=== PATIENT | female | born 1965 | race Caucasian/White ===

== ENCOUNTER 2021-12-30 13:36 | Outpatient (CLI) | payer MEDICAID ==
--- NOTE | 2021-12-30 17:00 | XRAY Report ---
PROCEDURE: Chest 2 View X-Ray INDICATIONS: BRONCHITIS TECHNIQUE: 2 view(s) of the chest. COMPARISON: None. FINDINGS: Surgical changes and devices: None. Lungs and pleura: No pleural effusions or pneumothorax. Lungs are clear. Mediastinum: Mediastinal contours are normal. Heart size is normal. Bones and chest wall: No suspicious bony abnormalities. Soft tissues appear unremarkable. IMPRESSION: No acute cardiopulmonary disease process. Reviewed by: Linda Dawson MD, PhD on 12/30/2021 4:59 PM PDT Approved by: Linda Dawson MD, PhD on 12/30/2021 4:59 PM PDT Station ID: [id number]
== END 2021-12-30 23:59 | disposition home or self-care (01) ==
LOC: DI.N 13:36
PROVIDERS: ATTEND Family Medicine
DX: J20.9 Acute bronchitis, unspecified (principal)

== ENCOUNTER 2022-01-05 22:07 | Emergency (ER) | payer MEDICAID ==
--- OUTSIDE RECORDS SUMMARY | 2022-01-05 22:38 | EXTERNAL MEDICAL SUMMARY RPT | Continuity of Care Document ---
:1965 Author Organization [facility] Address [address] [place] [address] Phone Care Team Providers Name Role Phone Melecio KNOX Unavailable Unavailable Allergies No information. Encounters No information. Medications date description facility 20211230 prednisone All Problems date description facility 20220103 migraine with vomiting [facility] [employer] 20211230 CHEST 2 VIEW All 20211230 Acute bronchitis, unspecified All 20211230 Acute bronchitis All Results No information. Vital Signs date measurement value source 20211230 weight_standard 155 lb 20211230 weight_metric 70.31 kg 20211230 temperature_standard 98.3 F 20211230 temperature_metric 36.83 C 20211230 respiration_rate 16 /min 20211230 height_standard 65 in 20211230 height_metric 165.1 cm 20211230 heart_rate 82 /min 20211230 BP_systolic 167 mm[Hg] 20211230 BP_diastolic 93 mm[Hg] 20211230 BMI 25.89 kg/m2
[2022-01-05] MEDS ORDERED: SODIUM CHLORIDE 0.9% 1,000 ML IV STA (23:49)
[2022-01-05] MEDS ORDERED: METOCLOPRAMIDE 10 MG/2 ML VIAL IVP STA (23:49)
[2022-01-05] MEDS ORDERED: KETOROLAC 30 MG/ML VIAL IVP STA (23:49)
[2022-01-05] MEDS ORDERED: diphenhydrAMINE INJ 50 MG/ML VIAL IVP STA (23:49)
[2022-01-06 00:19] LABS: BASOPHILS % (AUTO) 0.3 %; EOSINOPHILS # (AUTO) 0.5 10^3/uL (0.0-0.7); EOSINOPHILS % (AUTO) 4.2 %; HGB - HEMOGLOBIN 14.8 g/dL (12.0-16.0); LYMPHOCYTES # (AUTO) 1.5 10^3/uL (1.5-3.5); LYMPHOCYTES % (AUTO) 13.6 %; MEAN CORPUSCULAR HEMOGLOBIN 28.8 pg (27.0-31.0); MEAN CORPUSCULAR HGB CONC 33.6 g/dL (32.0-36.0); MEAN CORPUSCULAR VOLUME 85.8 fL (81.0-99.0); MONOCYTES # (AUTO) 1.1 10^3/uL (0.0-1.0); MONOCYTES % (AUTO) 9.4 %; NEUTROPHILS # (AUTO) 7.9 10^3/uL (1.5-6.6); NEUTROPHILS % (AUTO) 71.3 %; PLT - PLATELET COUNT 281 10^3/uL (130-450); RED BLOOD COUNT 5.13 10^6/uL (4.20-5.40); RED CELL DISTRIBUTION WIDTH 11.6 % (12.0-15.0); WHITE BLOOD COUNT 11.1 x10^3/uL (4.8-10.8)
[2022-01-06 00:30] LABS: ALBUMIN 3.6 g/dL (3.2-5.5); ALBUMIN/GLOBULIN RATIO 0.9 (1.0-2.2); BILIRUBIN,TOTAL 0.8 mg/dL (0.2-1.0); CALCIUM 8.8 mg/dL (8.5-10.3); CREATININE 0.9 mg/dL (0.4-1.0); POTASSIUM 3.4 mmol/L (3.5-5.0); TOTAL PROTEIN 7.8 g/dL (6.7-8.2)
[2022-01-06] MEDS ORDERED: IOVERSOL 320 100 ML VIAL IVP ONE ×2 (00:37→00:58)
[2022-01-06 01:18] VITALS: BP 100/54
--- NOTE | 2022-01-06 01:51 | CT Report ---
PROCEDURE: Abdomen/Pelvis W INDICATIONS: generalized abd pain CONTRAST: IV CONTRAST: Optiray 320 ml: 100 PO CONTRAST: *NO PO CONTRAST TECHNIQUE: After the administration of intravenous contrast, 5 mm thick sections acquired from the diaphragms to the symphysis. 5 mm thick coronal and sagittal reformats were acquired. For radiation dose reducti on, the following was used: automated exposure control, adjustment of mA and/or kV according to delonte ent size. COMPARISON: None. FINDINGS: Image quality: Excellent. ABDOMEN: Lung bases: Lung bases are clear. Heart size is normal. Small hiatal hernia. Solid organs: Liver is prominent in size. No focal lesion. Gallbladder is unremarkable. Biliary sy stem is non dilated. Pancreas enhances normally. No splenomegaly. No adrenal nodules. Kidneys demon strate normal size and enhancement, without hydronephrosis. Peritoneum and bowel: Thickening at the colonic hepatic flexure, (03/01). Diverticulosis. Normal appen sly. No small bowel obstruction. Prominence of the mesenteric vasculature in the left abdomen. No irwin e fluid or air. Nodes and vessels: No retroperitoneal or mesenteric adenopathy by size criteria. Aorta and inferior vena cava are normal in size. Miscellaneous: No ventral hernias. PELVIS: Genitourinary: Bladder wall thickness is normal. Anteverted uterus. Miscellaneous: No inguinal hernias or adenopathy. Bones: No suspicious bony lesions. No vertebral body compression fractures. IMPRESSION: 1. Thickening at the colonic hepatic flexure. This could represent colon cancer. Colitis or focal dec ompression could have a similar appearance. Recommend colonoscopy for further evaluation if not recen tly performed. 2. Prominence of the mesenteric vasculature in the left abdomen. This is a nonspecific finding but co uld be seen in an enteritis. 3. No small bowel obstruction. No free fluid. Diverticulosis. 4. Small hiatal hernia. Reviewed by: Cal Lara MD on 01/06/2022 1:50 AM PDT Approved by: Cal Lara MD on 01/06/2022 1:50 AM PDT Station ID: [id number]
--- NOTE | 2022-01-06 02:09 | ED Physician Documentation ---
PD HPI ABD PAIN - Stated complaint Stated Complaint: HBP/HEADACHE/ABD PX/NAUSEA - Chief complaint Chief Complaint: Neuro - History obtained from History obtained from: Patient - Additional information Additional information: Patient is a 56-year-old female with a history significant for previous stroke with no residual deficits, hypothyroidism presenting for evaluation of headache and abdominal pain.Patient had similar symptoms on Tuesday and was seen at another hospital called [facility]. She had a CT of her head that was reportedly normal and had low potassium which was repleted. Patient has discharge papers with her. She was given prescriptions for Pepcid and Zofran.Patient reports that around 7 PM her headache suddenly returned to the right side of her head which is where he was previously located and feels Similar to the previous headache she had on Tuesday. She also describes having generalized abdominal pain with nausea and vomiting.She attempted Zofran which she has from previous ED visit which did not help. She denies recent fever, trauma, chest pain, difficulty breathing, congestion, dysuria,Focal weakness. Review of Systems Constitutional: denies: Fever Eyes: reports: Photophobia Nose: denies: Congestion Cardiac: denies: Chest pain / pressure, Palpitations Respiratory: denies: Dyspnea, Cough GI: reports: Abdominal Pain, Nausea, Vomiting : denies: Dysuria, Hematuria Skin: denies: Rash Musculoskeletal: denies: Neck pain, Back pain Neurologic: reports: Headache. denies: Focal weakness, Syncope, Head injury PD PAST MEDICAL HISTORY - Past Medical History Past Medical History: Yes Cardiovascular: None Respiratory: None Neuro: CVA Endocrine/Autoimmune: HyPOthyroidism GI: None FIELD MARKETING DIRECTOR: None : None HEENT: None Psych: None Musculoskeletal: None Derm: None Other Past Medical History: STROKE X 2019... - Past Surgical History Past Surgical History: No - Present Medications Home Medications: Ambulatory Orders Medication Instructions Recorded Confirmed Levothyroxine Sodium 0.112 mcg PO DAILY 01/05/22 01/05/22 [Levothyroxine] - Allergies Allergies/Adverse Reactions: Allergies Allergy/AdvReac Type Severity Reaction Status Date / Time No Known Drug Allergies Allergy Verified 01/05/22 22:15 - Social History Does the pt smoke?: Yes Smoking Status: Current every day smoker Does the pt drink ETOH?: No Does the pt have substance abuse?: No - Immunizations Immunizations are current?: Yes - POLST Patient has POLST: No PD ED PE NORMAL - General General: Alert and oriented X 3, No acute distress, Well developed/nourished - HEENT HEENT: Atraumatic, PERRL, EOMI, Moist mucous membranes, Pharynx benign - Neck Neck: Supple, no meningeal sign - Cardiac Cardiac: RRR, No murmur, Strong equal pulses - Respiratory Respiratory: No respiratory distress, Clear bilaterally - Abdomen Abdomen: Normal bowel sounds, Soft, Non tender (Mild generalized tenderness), Non distended - Back Back: No CVA TTP - Derm Derm: Normal color, Warm and dry - Extremities Extremities: No deformity, No edema - Neuro Neuro: Alert and oriented X 3, 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, No motor deficit, No sensory deficit, Normal speech, Other (Normal gait) - Psych Psych: Normal mood, Normal affect Results - Vitals Vitals: Vital Signs - 24 hr 01/05/22 01/05/22 01/05/22 22:09 22:50 22:56 Temperature 36.8 C Heart Rate 93 67 Respiratory 17 17 17 Rate Blood Pressure 148/92 H O2 Saturation 95 97 01/06/22 01/06/22 01/06/22 00:22 01:17 01:42 Temperature Heart Rate 75 70 Respiratory 16 15 16 Rate Blood Pressure 100/54 L O2 Saturation 96 97 01/06/22 01/06/22 01:52 02:07 Temperature 36.6 C Heart Rate Respiratory 16 Rate Blood Pressure O2 Saturation Oxygen O2 Source Room air - Labs Labs: Laboratory Tests 01/05/22 01/05/22 00:12 00:12 WBC 11.1 H RBC 5.13 Hgb 14.8 Hct 44.0 MCV 85.8 MCH 28.8 MCHC 33.6 RDW 11.6 L Plt Count 281 MPV 11.0 H Neut # (Auto) 7.9 H Lymph # (Auto) 1.5 Harmon # (Auto) 1.1 H Eos # (Auto) 0.5 Baso # (Auto) 0.0 Absolute Nucleated RBC 0.00 Nucleated RBC % 0.0 Sodium 137 Potassium 3.4 L Chloride 100 L Carbon Dioxide 25 Anion Gap 12.0 BUN 27 H Creatinine 0.9 Estimated GFR (MDRD) 65 L Glucose 115 H Calcium 8.8 Total Bilirubin 0.8 AST 13 ALT 14 Alkaline Phosphatase 77 Total Protein 7.8 Albumin 3.6 Globulin 4.2 Albumin/Globulin Ratio 0.9 L Lipase 30 PD MEDICAL DECISION MAKING - ED course Complexity details: reviewed results, d/w patient, d/w family ED course: Patient is a 56-year-old female presenting for evaluation of a headache and abdominal pain. In regards to her headache, she reports it did come on suddenly but feels similar to the headache she had on Tuesday. During previous ED visit she did have a head CT at outside facility which was reported as normal per the patient. We had a long discussion regarding repeating the head CT and as patient feels that the headache is similar and not worse or different than we will hold off on repeating the head CT this evening. Patient also reports having generalized abdominal pain. Labs and CT imaging reviewed. A CT with findings of enteritis as well as possible inflammation of the colon near the hepatic flexure. I reviewed these findings with the patient and her daughter at the bedside. They are aware of need for follow-up with PCP and possible GI referral for colonoscopy given concern for colon cancer. Patient does report having had a colonoscopy 2 years ago in [place] that showed diverticulosis but no other acute findings.Her pain has improvedAnd she is ambulatory at discharge. She is aware of return precautions. Blood pressure has also remained within normal limits at discharge. Departure - Departure Disposition: 01 Home, Self Care Clinical Impression: Abdominal pain Qualifiers: Abdominal location: generalized Qualified Code(s): R10.84 - Generalized abdominal pain Migraine Qualifiers: Migraine type: without aura Status migrainosus presence: without status migrainosus Intractability: not intractable Qualified Code(s): G43.009 - Migraine without aura, not intractable, without status migrainosus Condition: Stable Instructions: ED Abdominal Pain Female Non-Specific Abdominal Pain, ED Headache Migraine Comments: Yasmeen - You were evaluated for a headache and abdominal pain today. Your vital signs are reassuring with blood pressures within normal limits. We had a long discussion regarding obtaining a head CT as you recently just had one at another hospital. Because your headache is similar to the one you had a few days ago we have decided to hold off on another head CT.You did receive medications to help you with the headache and it appears to have improved. We did obtain other lab workAnd reviewed your electrolytes. You also had a CT scan done of the abdomen and pelvis. We reviewed the findings together which require follow-up with your primary care doctor and a spool hauler to decide if you need a colonoscopy sooner than your next scheduled 1. Please continue taking the Pepcid and Zofran that you were previously prescribed. Please also follow-up with your primary care doctor in the next week. Return to the emergency department should your pain return, worsen or you develop any new concerning symptoms. IMPRESSION: 1. Thickening at the colonic hepatic flexure. This could represent colon cancer. Colitis or focal decompression could have a similar appearance. Recommend colonoscopy for further evaluation if not recently performed. 2. Prominence of the mesenteric vasculature in the left abdomen. This is a nonspecific finding but could be seen in an enteritis. Discharge Date/Time: 01/06/22 02:15
== END 2022-01-06 02:15 | disposition home or self-care (01) ==
LOC: ED 22:07
DX: G43.009 Migraine without aura, not intractable, without status migrainosus (principal); R10.84 Generalized abdominal pain; F17.200 Nicotine dependence, unspecified, uncomplicated
CPT/HCPCS: 36415; 74177; 80053; 83690; 85025; 96374; 96375; 99284; J1200; J2765; Q9967

== ENCOUNTER 2022-03-15 15:30 | Outpatient (CLI) | payer MEDICAID ==
--- NOTE | 2022-03-30 08:20 | Mammography Report ---
BILATERAL DIGITAL SCREENING MAMMOGRAM 3D/2D: 03/15/2022 CLINICAL: Routine screening. No prior exams were available for comparison. There are scattered fibroglandular elements in both br easts. No significant masses, calcifications, or other findings are seen in either breast. IMPRESSION: NEGATIVE There is no mammographic evidence of malignancy. A 1 year screening mammogram is recommended. Based on the Tyrer Cuzick model (a risk assessment model) the patients lifetime risk is 7.7% and her 10 year risk is 2.3%. According to the ACR, ACS, and NCCN guidelines, an annual breast MRI exam carmen g with mammogram is recommended if the patients lifetime risk is 20% or greater. This exam was interpreted at Station ID: [id number]. NOTE: For mammograms, a report in lay terms will be sent to the patient. Approximately 15% of breast malignancies will not be visualized mammographically. In the management of a palpable breast mass, a negative mammogram must not discourage biopsy of a clinically suspicious lesion. Electronically Signed By: Elin madrigal/anitha:03/29/2022 09:04:34 ACR BI-RADS Category 1: Negative 3341F PARENCHYMAL PATTERN: (A) - The breast(s) demonstrate(s) scattered fibroglandular densities. BI-RADS CATEGORY: (1) - 1 RECOMMENDATION: (ANNUAL) - Recommend routine annual screening mammography. [id number] 1 year screening LATERALITY: (B)
== END 2022-03-15 15:31 | disposition home or self-care (01) ==
LOC: DI.N 15:30
PROVIDERS: ATTEND Physician Assistant
DX: Z12.31 Encounter for screening mammogram for malignant neoplasm of breast (principal)

== ENCOUNTER 2022-05-28 18:08 | Emergency (ER) | payer MEDICAID ==
[2022-05-28 18:58] LABS: BASOPHILS % (AUTO) 0.7 %; EOSINOPHILS # (AUTO) 0.1 10^3/uL (0.0-0.7); EOSINOPHILS % (AUTO) 1.9 %; HCT - HEMATOCRIT 40.2 % (37.0-47.0); HGB - HEMOGLOBIN 13.8 g/dL (12.0-16.0); LYMPHOCYTES # (AUTO) 0.6 10^3/uL (1.5-3.5); LYMPHOCYTES % (AUTO) 9.6 %; MEAN CORPUSCULAR HEMOGLOBIN 29.7 pg (27.0-31.0); MEAN CORPUSCULAR HGB CONC 34.3 g/dL (32.0-36.0); MEAN CORPUSCULAR VOLUME 86.6 fL (81.0-99.0); MEAN PLATELET VOLUME 11.3 fL (7.9-10.8); MONOCYTES # (AUTO) 0.8 10^3/uL (0.0-1.0); MONOCYTES % (AUTO) 13.1 %; NEUTROPHILS # (AUTO) 4.3 10^3/uL (1.5-6.6); NEUTROPHILS % (AUTO) 74.5 %; PLT - PLATELET COUNT 176 10^3/uL (130-450); RED BLOOD COUNT 4.64 10^6/uL (4.20-5.40); RED CELL DISTRIBUTION WIDTH 11.9 % (12.0-15.0); WHITE BLOOD COUNT 5.8 x10^3/uL (4.8-10.8)
[2022-05-28 19:12] LABS: ALBUMIN/GLOBULIN RATIO 1.1 (1.0-2.2); BILIRUBIN,TOTAL 0.6 mg/dL (0.2-1.0); CALCIUM 9.1 mg/dL (8.5-10.3); CREATININE 0.8 mg/dL (0.4-1.0); POTASSIUM 4.1 mmol/L (3.5-5.0); TOTAL PROTEIN 7.8 g/dL (6.7-8.2)
--- NOTE | 2022-05-28 20:20 | XRAY Report ---
PROCEDURE: Chest 1 View X-Ray INDICATIONS: Chest Pain TECHNIQUE: One view of the chest was acquired. COMPARISON: 12/30/21 FINDINGS: Surgical changes and devices: None. Lungs and pleura: No pleural effusions or pneumothorax. Lungs are clear. Mediastinum: Mediastinal contours appear normal. Heart size is normal. Bones and chest wall: No suspicious bony lesions. Overlying soft tissues appear unremarkable. IMPRESSION: 1. No acute intracranial abnormality. Reviewed by: Waldo Frye MD on 05/28/2022 8:19 PM PDT Approved by: Waldo Frye MD on 05/28/2022 8:19 PM PDT Station ID: [id number]
--- NOTE | 2022-05-28 21:21 | ED Physician Documentation ---
PD HPI CHEST PAIN - Stated complaint Stated Complaint: CHEST DISCOMFORT - Chief complaint Chief Complaint: Cardiac - Additional information Additional information: Patient with history of hypothyroidism presenting for evaluation of chest pain that started yesterday evening while she was in bed. Pain is across her chest and feels like a tightness. At times radiates to her back and into the jaw but that has not occurred since earlier this morning. Patient went to the walk-in clinic and was referred to the emergency department. She denies associated nausea or difficulty breathing. Her family is currently ill with COVID but she has had negative COVID tests including earlier today at the walk-in clinic. She denies a history of hypertension, CAD, hyperlipidemia, diabetes.Pain is worse when she is laying on her back and better if she is lying on her side. Review of Systems Constitutional: reports: Fever Nose: denies: Congestion Cardiac: reports: Chest pain / pressure Respiratory: denies: Dyspnea, Cough GI: denies: Abdominal Pain, Vomiting : denies: Dysuria Musculoskeletal: denies: Neck pain, Extremity swelling Neurologic: denies: Headache PD PAST MEDICAL HISTORY - Past Medical History Cardiovascular: None Respiratory: None Neuro: CVA Endocrine/Autoimmune: HyPOthyroidism GI: None CASE TECHNICIAN: None : None HEENT: None Psych: None Musculoskeletal: None Derm: None - Past Surgical History Past Surgical History: No - Present Medications Home Medications: Ambulatory Orders Medication Instructions Recorded Confirmed Levothyroxine Sodium 0.112 mcg PO DAILY 01/05/22 01/05/22 [Levothyroxine] - Allergies Allergies/Adverse Reactions: Allergies Allergy/AdvReac Type Severity Reaction Status Date / Time No Known Drug Allergies Allergy Verified 05/28/22 18:18 - Social History Does the pt smoke?: Yes Smoking Status: Current every day smoker Does the pt drink ETOH?: No Does the pt have substance abuse?: No - Immunizations Immunizations are current?: Yes - POLST Patient has POLST: No PD ED PE NORMAL - General General: Alert and oriented X 3, No acute distress, Well developed/nourished - HEENT HEENT: Atraumatic, Moist mucous membranes - Neck Neck: Supple, no meningeal sign - Cardiac Cardiac: RRR, No murmur, Strong equal pulses, Other (No crepitus) - Respiratory Respiratory: No respiratory distress, Clear bilaterally - Abdomen Abdomen: Normal bowel sounds, Soft, Non tender, Non distended - Back Back: No CVA TTP, No spinal TTP - Derm Derm: Warm and dry - Extremities Extremities: No edema, No calf tenderness / cord - Neuro Neuro: Normal speech Results - Vitals Vitals: Vital Signs - 24 hr 05/28/22 05/28/22 18:15 21:48 Temperature 36.8 C Heart Rate 92 89 Respiratory 16 18 Rate Blood Pressure 143/78 H 133/91 H O2 Saturation 95 97 Oxygen O2 Source Room air - EKG (time done) 1723 Rate: Rate (enter#) (88) Rhythm: NSR Intervals: No: Prolonged QT Ischemia: No: ST elevation c/w ischemia, ST depression 1820 Rate: Rate (enter#) (90) Rhythm: NSR Intervals: No: Prolonged QT Ischemia: No: ST elevation c/w ischemia, ST depression Compare to prior EKG: Other (No significant change from previous EKG) - Labs Labs: Laboratory Tests 05/28/22 05/28/22 05/28/22 18:54 18:54 18:54 WBC 5.8 RBC 4.64 Hgb 13.8 Hct 40.2 MCV 86.6 MCH 29.7 MCHC 34.3 RDW 11.9 L Plt Count 176 MPV 11.3 H Neut # (Auto) 4.3 Lymph # (Auto) 0.6 L Blaine # (Auto) 0.8 Eos # (Auto) 0.1 Baso # (Auto) 0.0 Absolute Nucleated RBC 0.00 Nucleated RBC % 0.0 Sodium 136 Potassium 4.1 Chloride 102 Carbon Dioxide 25 Anion Gap 9.0 BUN 16 Creatinine 0.8 Estimated GFR (MDRD) 74 L Glucose 105 H Calcium 9.1 Total Bilirubin 0.6 AST 15 ALT 12 Alkaline Phosphatase 79 Troponin I High Sens 7.0 Total Protein 7.8 Albumin 4.0 Globulin 3.8 Albumin/Globulin Ratio 1.1 Lipase 29 SARS-CoV-2 (PCR) 05/28/22 05/28/22 20:20 20:38 WBC RBC Hgb Hct MCV MCH MCHC RDW Plt Count MPV Neut # (Auto) Lymph # (Auto) Blaine # (Auto) Eos # (Auto) Baso # (Auto) Absolute Nucleated RBC Nucleated RBC % Sodium Potassium Chloride Carbon Dioxide Anion Gap BUN Creatinine Estimated GFR (MDRD) Glucose Calcium Total Bilirubin AST ALT Alkaline Phosphatase Troponin I High Sens 7.1 Total Protein Albumin Globulin Albumin/Globulin Ratio Lipase SARS-CoV-2 (PCR) DETECTED A PD MEDICAL DECISION MAKING - ED course Complexity details: reviewed results, re-evaluated patient, d/w patient ED course: Patient presenting for evaluation of chest pain. Pain has improved while here. EKG reviewed. Troponin is negative x2. Pain appears atypical for ACS as it is better in certain positions. Also doubt dissection or pulmonary embolism Based on the history And exam. Patient's family members have recently been ill with COVID and patient has tested positive for COVID here.Her vital signs are stable and does not require admission For COVID treatment. Patient aware of need for quarantine as well as need for close follow-up with primary care doctor regarding her chest pain. She is also advised on strict return precautions. Departure - Departure Disposition: Home, Self Care Clinical Impression: COVID-19 Chest pain Qualifiers: Chest pain type: unspecified Qualified Code(s): R07.9 - Chest pain, unspecified Condition: Stable Instructions: ED Chest Pain Atypical Unkn Cause Follow-Up: Julia Scales PA-C [Primary Care Provider] - Comments: You were evaluated for chest pain. Your cardiac markers were negative and do not show signs of a heart attack.Your x-ray was clear. A COVID test is pending. At this time the exact cause of your chest pain is unclear. You may need further testing to evaluate your heart such as a stress test or an echocardiogram. If you have any worsening symptoms please return to the emergency department. Please call your primary care doctor on Tuesday for close follow-up within a few days. You have a Covid test pending. You need to self quarantine until the result is done and negative. Do not leave your house. Do not get near anybody. The results should be done in 48 to 72 hours. We will call with a positive result, the fastest way to get a negative result for confirmation though is to go to the hospital website at [email or web address], click on the my [email or web address] tab and sign up for the patient portal. If any friends or family get sick and would like to have a Covid test done, but do not have signs or symptoms that would necessitate being hospitalized, there are multiple local options for Covid testing. [facility] keeps an updated list of testing and vaccination options at: [email or web address]. Discharge Date/Time: 05/28/22 22:00
[2022-05-28 23:58] VITALS: BP 133/91
== END 2022-05-28 22:00 | disposition home or self-care (01) ==
LOC: ED 18:08
DX: U07.1 COVID-19 (principal); R07.9 Chest pain, unspecified; F17.200 Nicotine dependence, unspecified, uncomplicated
CPT/HCPCS: 36415; 80053; 83690; 84484; 85025; 93005; 99284

== ENCOUNTER 2022-12-09 09:13 | Outpatient (CLI) | payer MEDICAID ==
[2022-12-09 12:06] LABS: BASOPHILS # (AUTO) 0.1 10^3/uL (0.0-0.1); BASOPHILS % (AUTO) 1.2 %; EOSINOPHILS # (AUTO) 0.2 10^3/uL (0.0-0.7); EOSINOPHILS % (AUTO) 5.6 %; HCT - HEMATOCRIT 44.4 % (37.0-47.0); HGB - HEMOGLOBIN 14.2 g/dL (12.0-16.0); LYMPHOCYTES # (AUTO) 1.3 10^3/uL (1.5-3.5); LYMPHOCYTES % (AUTO) 30.7 %; MEAN CORPUSCULAR HEMOGLOBIN 29.6 pg (27.0-31.0); MEAN CORPUSCULAR VOLUME 92.7 fL (81.0-99.0); MEAN PLATELET VOLUME 12.1 fL (7.9-10.8); MONOCYTES # (AUTO) 0.4 10^3/uL (0.0-1.0); MONOCYTES % (AUTO) 8.9 %; NEUTROPHILS # (AUTO) 2.3 10^3/uL (1.5-6.6); NEUTROPHILS % (AUTO) 53.4 %; PLT - PLATELET COUNT 226 10^3/uL (130-450); RED BLOOD COUNT 4.79 10^6/uL (4.20-5.40); RED CELL DISTRIBUTION WIDTH 12.2 % (12.0-15.0); WHITE BLOOD COUNT 4.3 x10^3/uL (4.8-10.8)
[2022-12-09 12:18] LABS: ALBUMIN/GLOBULIN RATIO 1.1 (1.0-2.2); ALKALINE PHOSPHATASE 77 IU/L (42-121); ALT ALANINE AMINOTRANSFERASE 15 IU/L (10-60); AST ASPARTATE AMINOTRANSFERASE 15 IU/L (10-42); BILIRUBIN,TOTAL 0.8 mg/dL (0.2-1.0); BUN - BLOOD UREA NITROGEN 16 mg/dL (6-20); CALCIUM 8.9 mg/dL (8.5-10.3); CARBON DIOXIDE - CO2 29 mmol/L (21-32); CHLORIDE 107 mmol/L (101-111); CHOLESTEROL 220 mg/dL; CREATININE 0.9 mg/dL (0.4-1.0); GFR - MDRD 65 (>89); GLUCOSE 97 mg/dL (70-100); HDL CHOLESTEROL 55 mg/dL; LDL CHOLESTEROL,CALCULATED 147 mg/dL; LDL/HDL RATIO 2.7 (<4.4); SODIUM 140 mmol/L (135-145); TOTAL PROTEIN 7.6 g/dL (6.7-8.2); TRIGLYCERIDES 91 mg/dL; VLDL CHOLESTEROL 18 mg/dL
[2022-12-09 12:24] LABS: THYROID STIMULATING HORMONE 0.56 uIU/mL (0.34-5.60)
[2022-12-09 12:29] LABS: FREE T4 (FREE THYROXINE) 1.43 ng/dL (0.58-1.64)
== END 2022-12-09 09:14 | disposition home or self-care (01) ==
LOC: LAB.N 09:13
PROVIDERS: ATTEND Physician Assistant
DX: E03.9 Hypothyroidism, unspecified (principal); F17.201 Nicotine dependence, unspecified, in remission; Z13.220 Encounter for screening for lipoid disorders
CPT/HCPCS: 36415; 80053; 80061; 83721; 84439; 84443; 85025

== ENCOUNTER 2024-01-23 10:52 | Outpatient (CLI) | payer MEDICAID ==
[2024-01-23 17:42] LABS: BASOPHILS # (AUTO) 0.1 10^3/uL (0.0-0.1); BASOPHILS % (AUTO) 1.5 %; EOSINOPHILS # (AUTO) 0.3 10^3/uL (0.0-0.7); EOSINOPHILS % (AUTO) 4.9 %; HCT - HEMATOCRIT 44.9 % (37.0-47.0); HGB - HEMOGLOBIN 14.6 g/dL (12.0-16.0); LYMPHOCYTES # (AUTO) 1.4 10^3/uL (1.5-3.5); LYMPHOCYTES % (AUTO) 25.4 %; MEAN CORPUSCULAR HEMOGLOBIN 31.3 pg (27.0-31.0); MEAN CORPUSCULAR HGB CONC 32.5 g/dL (32.0-36.0); MEAN CORPUSCULAR VOLUME 96.4 fL (81.0-99.0); MEAN PLATELET VOLUME 11.8 fL (7.9-10.8); MONOCYTES # (AUTO) 0.4 10^3/uL (0.0-1.0); MONOCYTES % (AUTO) 8.2 %; NEUTROPHILS # (AUTO) 3.2 10^3/uL (1.5-6.6); NEUTROPHILS % (AUTO) 59.8 %; PLT - PLATELET COUNT 261 10^3/uL (130-450); RED BLOOD COUNT 4.66 10^6/uL (4.20-5.40); RED CELL DISTRIBUTION WIDTH 12.9 % (12.0-15.0); WHITE BLOOD COUNT 5.4 x10^3/uL (4.8-10.8)
[2024-01-23 17:54] LABS: ALBUMIN 4.3 g/dL (3.2-5.5); ALBUMIN/GLOBULIN RATIO 1.5 (1.0-2.2); ALKALINE PHOSPHATASE 86 IU/L (42-121); ALT ALANINE AMINOTRANSFERASE 9 IU/L (10-60); AST ASPARTATE AMINOTRANSFERASE 12 IU/L (10-42); BILIRUBIN,TOTAL 0.6 mg/dL (0.2-1.0); BUN - BLOOD UREA NITROGEN 18 mg/dL (6-20); CALCIUM 9.7 mg/dL (8.5-10.3); CARBON DIOXIDE - CO2 29 mmol/L (21-32); CHLORIDE 106 mmol/L (101-111); CHOL/HDL RATIO 3.4 (<4.4); CHOLESTEROL 204 mg/dL; CREATININE 0.9 mg/dL (0.6-1.3); GFR - MDRD 65 (>89); GLUCOSE 91 mg/dL (74-104); HDL CHOLESTEROL 60 mg/dL; LDL CHOLESTEROL,CALCULATED 122 mg/dL; POTASSIUM 4.2 mmol/L (3.5-4.5); SODIUM 139 mmol/L (135-145); TOTAL PROTEIN 7.2 g/dL (6.4-8.9); TRIGLYCERIDES 108 mg/dL (48-352); VLDL CHOLESTEROL 22 mg/dL
[2024-01-23 18:12] LABS: THYROID STIMULATING HORMONE 0.21 uIU/mL (0.34-5.60)
== END 2024-01-23 10:53 | disposition home or self-care (01) ==
LOC: LAB.N 10:52
PROVIDERS: ATTEND Physician Assistant
DX: I10 Essential (primary) hypertension (principal); E03.9 Hypothyroidism, unspecified; Z13.220 Encounter for screening for lipoid disorders
CPT/HCPCS: 36415; 80053; 80061; 83721; 84439; 84443; 85025

== ENCOUNTER 2024-02-20 08:00 | Outpatient (CLI) | payer MEDICAID | END 2024-02-20 23:59 | disposition home or self-care (01) | LOC: LAB.N 08:00 | PROVIDERS: ATTEND Physician Assistant Medical | DX: R82.81 Pyuria (principal) | CPT/HCPCS: 87086 ==

== ENCOUNTER 2024-02-26 16:14 | Emergency (ER) | payer MEDICAID ==
[2024-02-26 16:49] LABS: BASOPHILS # (AUTO) 0.1 10^3/uL (0.0-0.1); BASOPHILS % (AUTO) 1.2 %; EOSINOPHILS # (AUTO) 0.2 10^3/uL (0.0-0.7); EOSINOPHILS % (AUTO) 3.5 %; HCT - HEMATOCRIT 42.7 % (37.0-47.0); HGB - HEMOGLOBIN 14.1 g/dL (12.0-16.0); LYMPHOCYTES # (AUTO) 1.3 10^3/uL (1.5-3.5); LYMPHOCYTES % (AUTO) 20.1 %; MEAN CORPUSCULAR HEMOGLOBIN 30.9 pg (27.0-31.0); MEAN CORPUSCULAR VOLUME 93.6 fL (81.0-99.0); MEAN PLATELET VOLUME 10.6 fL (7.9-10.8); MONOCYTES # (AUTO) 0.5 10^3/uL (0.0-1.0); MONOCYTES % (AUTO) 7.4 %; NEUTROPHILS # (AUTO) 4.4 10^3/uL (1.5-6.6); NEUTROPHILS % (AUTO) 67.6 %; PLT - PLATELET COUNT 304 10^3/uL (130-450); RED BLOOD COUNT 4.56 10^6/uL (4.20-5.40); WHITE BLOOD COUNT 6.5 x10^3/uL (4.8-10.8)
--- NOTE | 2024-02-26 16:50 | ED Physician Documentation ---
History of Present Illness - Stated complaint Stated Complaint: BACK PX - Chief complaint Chief Complaint: Back Pain - History obtained from History obtained from: Patient - History of Present Illness Timing: How many weeks ago (2) Pain level max: 5 Pain level now: 5 - Additonal information Additional information: Patient is a 58-year-old female who presents to the emergency department stating that she has had back pain for the past few weeks, sometimes in the left flank, sometimes on the right flank. She states she was seen at the walk-in clinic a few days ago and gave a urinalysis but was told it was "contaminated". And that she should come into the emergency department for evaluation instead. She has no urinary symptoms. No dysuria or frequency. No nausea, vomiting, diarrhea. Does not recall any injuries. Does not use IV drugs. No numbness or tingling. No loss of bowel or bladder control. She states that the pain feels like it is "inside". Review of Systems Constitutional: denies: Fever, Chills Respiratory: denies: Cough GI: denies: Vomiting, Diarrhea : denies: Dysuria, Frequency, Hesitancy, Incontinent Skin: denies: Rash Musculoskeletal: denies: Neck pain Neurologic: denies: Focal weakness, Numbness, Headache PD PAST MEDICAL HISTORY - Past Medical History Past Medical History: Yes Cardiovascular: None Respiratory: None Neuro: CVA Endocrine/Autoimmune: HyPOthyroidism GI: None CAMPUS MANAGER: None : None HEENT: None Psych: None Musculoskeletal: None Derm: None - Past Surgical History Past Surgical History: No - Present Medications Home Medications: Ambulatory Orders Medication Instructions Recorded Confirmed Levothyroxine Sodium 0.112 mcg PO DAILY 01/05/22 02/26/24 [Levothyroxine] Amox/Clav 875/125 [Augmentin] 1 each PO Q8H #30 tablet 02/26/24 amLODIPine [Norvasc] 5 mg PO DAILY 02/26/24 02/26/24 - Allergies Allergies/Adverse Reactions: Allergies Allergy/AdvReac Type Severity Reaction Status Date / Time No Known Drug Allergies Allergy Verified 02/26/24 16:29 - Social History Does the pt smoke?: Yes Smoking Status: Current every day smoker Does the pt drink ETOH?: Yes ETOH Use: Liquor Does the pt have substance abuse?: No Substance Use and Type: Marijuana - Immunizations Immunizations are current?: Yes - POLST Patient has POLST: No PD ED PE NORMAL - Vitals Vital signs reviewed: Yes - General General: Alert and oriented X 3, No acute distress - HEENT HEENT: Moist mucous membranes - Neck Neck: Supple, no meningeal sign - Cardiac Cardiac: RRR - Respiratory Respiratory: No respiratory distress, Clear bilaterally - Abdomen Abdomen: Soft, Non distended, Other (Tender to palpation on the right side of the abdomen. No peritoneal signs. Negative Cotton sign.) - Back Back: No CVA TTP, No spinal TTP - Derm Derm: Warm and dry - Extremities Extremities: No edema, No calf tenderness / cord - Neuro Neuro: Alert and oriented X 3 - Psych Psych: Normal mood, Normal affect Results - Vitals Vitals: Vital Signs - 24 hr 02/26/24 02/26/24 16:22 19:11 Temperature 36.2 C L 36.2 C L Heart Rate 71 83 Respiratory 20 18 Rate Blood Pressure 142/82 H 126/71 O2 Saturation 97 100 Oxygen O2 Source Room air - Labs Labs: Laboratory Tests 02/26/24 02/26/24 02/26/24 16:42 16:42 16:53 WBC 6.5 RBC 4.56 Hgb 14.1 Hct 42.7 MCV 93.6 MCH 30.9 MCHC 33.0 RDW 12.0 Plt Count 304 MPV 10.6 Neut # (Auto) 4.4 Lymph # (Auto) 1.3 L [place] # (Auto) 0.5 Eos # (Auto) 0.2 Baso # (Auto) 0.1 Absolute Nucleated RBC 0.00 Nucleated RBC % 0.0 Sodium 140 Potassium 3.6 Chloride 106 Carbon Dioxide 29 Anion Gap 5.0 L BUN 14 Creatinine 1.0 Estimated GFR (MDRD) 57 L Glucose 93 Calcium 9.3 Total Bilirubin 0.7 AST 10 ALT 7 L Alkaline Phosphatase 78 Total Protein 6.3 L Albumin 4.2 Globulin 2.1 Albumin/Globulin Ratio 2.0 Lipase 25 Urine Color LT. YELLOW Urine Clarity CLOUDY Urine pH 6.0 Ur Specific [place] >=1.030 H Urine Protein 30 H Urine Glucose (UA) 100 H Urine Ketones TRACE Urine Occult Blood NEGATIVE Urine Nitrite NEGATIVE Urine Bilirubin MODERATE H Urine Urobilinogen 1 (NORMAL) Ur Leukocyte Esterase TRACE H Urine RBC 0-5 Urine WBC 6-10 H Ur Squamous Epith Cells MOD Squamous H Urine Bacteria Many H Urine Casts 11-25 Hyaline Casts Ur Microscopic Review INDICATED Urine Culture Comments NOT INDICATED - Rads (name of study) CT abdomen and pelvis Relevant Findings:: Final report received, See rad report PD Medical Decision Making - ED course Complexity details: reviewed results, re-evaluated patient, considered differential, d/w patient ED course: 58-year-old female presents to the emergency department abdominal pain and back pain intermittently over the past few weeks. Laboratory testing does not show any significant abnormalities. Urinalysis appears contaminated, is not having dysuria or urinary symptoms. CT scan was undertaken. This shows colitis. No history of inflammatory bowel disease. She states she had a normal colonoscopy last year. We will treat as infectious colitis and place her in antibiotics. Will have her follow-up with her doctor in 1 week for repeat evaluation. If she fails to improve as expected, would recommend repeat colonoscopy. Patient counseled regarding signs and symptoms for which I believe and urgent re- evaluation would be necessary. Patient with good understanding of and agreement to plan and is comfortable going home at this time This document was made in part using voice recognition software. While efforts are made to proofread this document, sound alike and grammatical errors may occur. Departure - Departure Disposition: 01 Home, Self Care Clinical Impression: Colitis Condition: Good Instructions: ED Diverticulitis Follow-Up: Julia Scales PA-C [Primary Care Provider] - Within 1 week Prescriptions: Amox/Clav 875/125 [Augmentin] 1 each PO Q8H #30 tablet Comments: Please follow-up with your doctor for further care. Please return if you worsen. Your CT scan shows evidence of cold lightest which is an inflammation in your colon. We are going to treat this with antibiotics as this could be infectious. It is recommended that you follow-up closely with your doctor for further care. Please return if you worsen. Your CT scan reading is below [facility] [place]. PROCEDURE: Abdomen/Pelvis W INDICATIONS: R sided abd pain CONTRAST: 100ml omni 300 TECHNIQUE: After the administration of intravenous contrast, a CT scan of the abdomen and pelvis was performed. Images were recorded and evaluated at appropriate window settings. Reformats: coronal and sagittal. For radiation dose reduction, the following was used: automated exposure control, adjustment of mA and/or kV according to patient size. COMPARISON: 01/05/2022 FINDINGS: Image quality: Diagnostic. Lower chest: Unremarkable. Liver: No solid mass. Diffuse fatty liver infiltration can be seen. Gallbladder: Within normal limits. Biliary tree: No intrahepatic or extrahepatic dilation, accounting for age. Spleen: No splenomegaly. Pancreas: No pancreatic ductal dilation. Adrenals: Generalized transplant thickening can be seen, yet without a focal adrenal nodule. Kidneys and ureters: No hydronephrosis. No renal cystic lesion which requires follow up. No solid mass. Stomach, bowel and peritoneum: Moderate wall thickening can be seen involving the cecum and the ascending colon. Generalized thickening can be seen involving the splenic flexure, the descending colon and the sigmoid colon. Diverticula formation can be seen within the sigmoid colon. No dilated loops of small bowel are seen. Normal appendix The stomach is relatively decompressed at the time of this study, limiting its evaluation. Lymph nodes: No central or retroperitoneal adenopathy. Vessels: No infrarenal aortic aneurysm. Patent portal vein. PELVIS Reproductive organs: Unremarkable. Bladder: No abnormal wall thickening, accounting for underdistention. Pelvic lymph nodes: No pelvic adenopathy by size criteria. Abnormally prominent vessels can be seen within the left adnexal region, with hypertrophy of the left gonadal vein. Bones: No aggressive osseous abnormality. Focal L5-S1 degenerative change is seen. Milder degenerative changes are seen elsewhere. Other: No significant ventral or inguinal hernia. IMPRESSION: Multiple areas of moderate colonic wall thickening can be seen. Please correlate with potential infectious and inflammatory causes of colitis. No findings of perforation or abscess can be seen. Distal colonic diverticulosis is seen. Diverticulitis is not suspected in this patient. 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 Additional findings: Fatty liver infiltration. Generalized adrenal gland thickening Normal appendix Focal L5-S1 degenerative change Discharge Date/Time: 02/26/24 19:14
[2024-02-26 17:05] LABS: ALBUMIN 4.2 g/dL (3.2-5.5); BILIRUBIN,TOTAL 0.7 mg/dL (0.2-1.0); CALCIUM 9.3 mg/dL (8.5-10.3); POTASSIUM 3.6 mmol/L (3.5-4.5); TOTAL PROTEIN 6.3 g/dL (6.4-8.9)
[2024-02-26 17:05] LABS: BILIRUBIN,URINE MODERATE (NEGATIVE); GLUCOSE, URINE (UA) 100 mg/dL (NEGATIVE); KETONES,URINE (UA) TRACE mg/dL (NEGATIVE); LEUKOCYTE ESTERASE, URINE TRACE (NEGATIVE); NITRITE,URINE NEGATIVE (NEGATIVE); OCCULT BLOOD,URINE NEGATIVE (NEGATIVE); PROTEIN,URINE 30 mg/dL (NEGATIVE); UROBILINOGEN,URINE 1 (NORMAL) E.U./dL (NORMAL)
[2024-02-26 17:07] LABS: CLARITY,URINE CLOUDY (CLEAR)
[2024-02-26] MEDS ORDERED: iohexoL-300 100 ML VIAL ONE (17:08)
[2024-02-26 17:22] LABS: RBC,URINE 0-5 /HPF (0-5)
[2024-02-26 17:23] LABS: BACTERIA,URINE Many /HPF (None Seen); CASTS, URINE 11-25 Hyaline Casts /LPF; SQUAMOUS EPITHELIAL CELL,UR MOD Squamous (<= Few)
[2024-02-26] MEDS: iohexoL-300 100 ML VIAL IVP ONE (17:28)
--- NOTE | 2024-02-26 18:02 | CT Report ---
PROCEDURE: Abdomen/Pelvis W INDICATIONS: R sided abd pain CONTRAST: 100ml omni 300 TECHNIQUE: After the administration of intravenous contrast, a CT scan of the abdomen and pelvis was performed. Images were recorded and evaluated at appropriate window settings. Reformats: coronal and sagittal. F or radiation dose reduction, the following was used: automated exposure control, adjustment of mA and /or kV according to patient size. COMPARISON: 01/05/2022 FINDINGS: Image quality: Diagnostic. Lower chest: Unremarkable. Liver: No solid mass. Diffuse fatty liver infiltration can be seen. Gallbladder: Within normal limits. Biliary tree: No intrahepatic or extrahepatic dilation, accounting for age. Spleen: No splenomegaly. Pancreas: No pancreatic ductal dilation. Adrenals: Generalized transplant thickening can be seen, yet without a focal adrenal nodule. Kidneys and ureters: No hydronephrosis. No renal cystic lesion which requires follow up. No solid mas s. Stomach, bowel and peritoneum: Moderate wall thickening can be seen involving the cecum and the ascen ding colon. Generalized thickening can be seen involving the splenic flexure, the descending colon an d the sigmoid colon. Diverticula formation can be seen within the sigmoid colon. No dilated loops of small bowel are seen. Normal appendix The stomach is relatively decompressed at the time of this study, limiting its evaluation. Lymph nodes: No central or retroperitoneal adenopathy. Vessels: No infrarenal aortic aneurysm. Patent portal vein. PELVIS Reproductive organs: Unremarkable. Bladder: No abnormal wall thickening, accounting for underdistention. Pelvic lymph nodes: No pelvic adenopathy by size criteria. Abnormally prominent vessels can be seen within the left adnexal region, with hypertrophy of the left gonadal vein. Bones: No aggressive osseous abnormality. Focal L5-S1 degenerative change is seen. Milder degenerativ e changes are seen elsewhere. Other: No significant ventral or inguinal hernia. IMPRESSION: Multiple areas of moderate colonic wall thickening can be seen. Please correlate with potential infec tious and inflammatory causes of colitis. No findings of perforation or abscess can be seen. Distal colonic diverticulosis is seen. Diverticulitis is not suspected in this patient. 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 Additional findings: Fatty liver infiltration. Generalized adrenal gland thickening Normal appendix Focal L5-S1 degenerative change Reviewed by: Andrew Ford MD on 02/26/2024 5:01 PM AKDT Approved by: Andrew Ford MD on 02/26/2024 5:01 PM KRISTIN Station ID: [id number]
[2024-02-26] MEDS: AMOX/CLAV 875 MG/125 MG TABLET PO STA (18:30)
[2024-02-26 19:22] VITALS: BP 126/71; O2SAT 100
== END 2024-02-26 19:14 | disposition home or self-care (01) ==
LOC: ED 16:14
DX: K52.9 Noninfective gastroenteritis and colitis, unspecified (principal); F17.200 Nicotine dependence, unspecified, uncomplicated
CPT/HCPCS: 36415; 74177; 80053; 81001; 83690; 85025; 99284; A9270; Q9967; 81003; 87086

== ENCOUNTER 2024-04-03 09:49 | Outpatient (CLI) | payer MEDICAID ==
[2024-04-03 12:59] LABS: BASOPHILS # (AUTO) 0.1 10^3/uL (0.0-0.1); BASOPHILS % (AUTO) 1.4 %; EOSINOPHILS # (AUTO) 0.3 10^3/uL (0.0-0.7); EOSINOPHILS % (AUTO) 6.5 %; HCT - HEMATOCRIT 43.3 % (37.0-47.0); LYMPHOCYTES # (AUTO) 1.6 10^3/uL (1.5-3.5); MEAN CORPUSCULAR HEMOGLOBIN 30.6 pg (27.0-31.0); MEAN CORPUSCULAR HGB CONC 32.3 g/dL (32.0-36.0); MEAN CORPUSCULAR VOLUME 94.7 fL (81.0-99.0); MEAN PLATELET VOLUME 12.3 fL (7.9-10.8); MONOCYTES # (AUTO) 0.4 10^3/uL (0.0-1.0); MONOCYTES % (AUTO) 8.8 %; NEUTROPHILS # (AUTO) 2.1 10^3/uL (1.5-6.6); NEUTROPHILS % (AUTO) 47.3 %; PLT - PLATELET COUNT 239 10^3/uL (130-450); RED BLOOD COUNT 4.57 10^6/uL (4.20-5.40); RED CELL DISTRIBUTION WIDTH 12.1 % (12.0-15.0); WHITE BLOOD COUNT 4.3 x10^3/uL (4.8-10.8)
[2024-04-03 13:20] LABS: ALBUMIN 4.5 g/dL (3.2-5.5); ALBUMIN/GLOBULIN RATIO 1.5 (1.0-2.2); BILIRUBIN,TOTAL 0.5 mg/dL (0.2-1.0); CALCIUM 9.7 mg/dL (8.5-10.3); CREATININE 0.8 mg/dL (0.6-1.3); POTASSIUM 3.8 mmol/L (3.5-4.5); TOTAL PROTEIN 7.5 g/dL (6.4-8.9)
== END 2024-04-03 09:50 | disposition home or self-care (01) ==
LOC: LAB.N 09:49
PROVIDERS: ATTEND Physician Assistant
DX: R19.5 Other fecal abnormalities (principal)
CPT/HCPCS: 36415; 80053; 83690; 85025; 87045; 87046; 87427; 87493